=== PATIENT | female | born 1945 | race Native Hawaiian/Other Pacific Islander ===

== ENCOUNTER 2016-07-14 08:10 | Outpatient (CLI) | payer OTHER, BC ==
[~2016-07-14 08:10] MED LIST: LEVO0.08 PO; MELO-13 PO
[2016-07-14 08:23] LABS: PLATELET COUNT 273 K/uL (152-353)
[2016-07-14 08:46] LABS: SODIUM 138 mmol/L (136-145)
== END 2016-07-14 10:00 | disposition home or self-care (01) ==
LOC: LABW 08:10
PROVIDERS: General Practice
DX: I10 Essential (primary) hypertension (principal); E03.8 Other specified hypothyroidism; J40 Bronchitis, not specified as acute or chronic; E78.4 Other hyperlipidemia
CPT/HCPCS: 36415; 80053; 80061; 84439; 84443; 85027

== ENCOUNTER 2016-10-13 09:42 | Outpatient (CLI) | payer OTHER, BC | END 2016-10-13 19:31 | disposition home or self-care (01) | LOC: LABW 09:42 | DX: R73.09 Other abnormal glucose (principal); E03.8 Other specified hypothyroidism | CPT/HCPCS: 36415; 83036; 84439; 84443 ==

== ENCOUNTER 2018-10-12 07:58 | Outpatient (CLI) | payer OTHER, BC ==
[2018-10-12 08:10] LABS: PLATELET COUNT 236 K/uL (152-353)
[2018-10-12 08:42] LABS: POTASSIUM 4.3 mmol/L (3.6-5.2)
== END 2018-10-12 23:43 | disposition home or self-care (01) ==
LOC: LABW 07:58
PROVIDERS: General Practice
DX: I10 Essential (primary) hypertension (principal); E03.8 Other specified hypothyroidism; R53.83 Other fatigue; E78.2 Mixed hyperlipidemia
CPT/HCPCS: 36415; 80053; 80061; 84439; 84443; 85027

== ENCOUNTER 2020-11-01 13:08 | Outpatient (CLI) | payer OTHER, BC ==
[2020-11-01 13:21] LABS: PLATELET COUNT 247 K/uL (152-353)
[2020-11-01 13:55] LABS: POTASSIUM 3.5 mmol/L (3.6-5.2)
== END 2020-11-01 22:03 | disposition home or self-care (01) ==
LOC: LABW 13:08
PROVIDERS: ATTEND General Practice
DX: I10 Essential (primary) hypertension (principal); E03.8 Other specified hypothyroidism; R42 Dizziness and giddiness; E78.2 Mixed hyperlipidemia
CPT/HCPCS: 36415; 80053; 80061; 84439; 84443; 85027